=== PATIENT | female | born 1950 | race Caucasian/White ===

== ENCOUNTER 2017-08-21 06:43 | Day surgery (SDC) | payer OTHER, BC ==
[2017-08-16 12:03] VITALS: BMI 27.8
[2017-08-21] MEDS ORDERED: ceFAZolin SODIUM 1 GM VIAL ONE (07:23)
[2017-08-21] MEDS ORDERED: DEXAMETHASONE SOD PHOSPHATE 4 MG/1 ML VIAL ONE (07:23)
[2017-08-21] MEDS ORDERED: ONDANSETRON 4 MG/2 ML VIAL ONE (07:23)
[2017-08-21] MEDS ORDERED: PROPOFOL 20 ML ONE (07:23)
[2017-08-21] MEDS ORDERED: MIDAZOLAM HCL 2 MG/2 ML SINGLE DOSE VIAL ONE (07:24)
[2017-08-21] MEDS ORDERED: THROMBIN (BOVINE) 5,000 UNIT VIAL TP ONE (07:29)
[2017-08-21] MEDS ORDERED: BACITRACIN 3.5 GM OPTHALMIC OINT TUBE ONE (07:29)
[2017-08-21] MEDS ORDERED: OXYMETAZOLINE 0.05% NASAL SOLUTION 15 ML BOTTLE NS ONE (07:29)
[2017-08-21] MEDS ORDERED: LIDOCAINE 1%/EPI 1:100000 (20 ML MULTI DOSE VIAL) ONE (07:30)
[2017-08-21] MEDS ORDERED: POVIDONE-IODINE 5% OPHTHALMIC PREP 30 ML SOLUTION ONE (07:30)
[2017-08-21] MEDS ORDERED: BUPIVACAINE HCL/PF 0.5% (5MG/ML) 10 ML VIAL ONE (07:30)
[2017-08-21] MEDS ORDERED: TETRACAINE 0.5% OPHTH SOLN 2 ML BOTTLE ONE (07:30)
[2017-08-21] MEDS ORDERED: GELATIN, ABSORBABLE 100 EACH SPONGE TP ONE (07:45)
[2017-08-21] MEDS ORDERED: oxyCODONE HCL 5 MG TABLET PO PRN (07:47)
[2017-08-21] MEDS ORDERED: ONDANSETRON 4 MG/2 ML VIAL IVPUSH PRN (07:47)
[2017-08-21] MEDS ORDERED: MITOMYCIN 0.02% EYE DROPS - 2ML VIAL IO ONE (08:00)
[2017-08-21] MEDS ORDERED: LACTATED RINGERS SOLUTION 1,000 ML IV SCH (08:00)
[2017-08-21] MEDS ORDERED: ePHEDrine SULFATE 50 MG/1 ML AMPULE ONE (08:12)
[2017-08-21] MEDS ORDERED: BSS (NA/CA/MG/K) BALANCED SALT SOLUTION OPHTH SOLN 15 ML BOTTLE ONE (08:50)
--- NOTE | 2017-08-21 10:12 | OP ---
DATE OF OPERATION: 08/21/2017 PREOPERATIVE DIAGNOSIS: nasolacrimal obstruction, complete, right, with epiphora. POSTOPERATIVE DIAGNOSIS: nasolacrimal obstruction, complete, right, with epiphora. PROCEDURE: 1. External dacryocystorhinostomy, right. 2. Silicone intubation, right lacrimal system. 3. Internal common canaliculoplasty, right. 4. Partial ethmoidectomy, right. 5. Application of topical mitomycin, right. 6. Endoscopy. SURGEON: Lance Keller MD ANESTHESIA: General, LMA. COMPLICATONS: None. ESTIMATED BLOOD LOSS: 10 to 20 mL. OPERATIVE REPORT: Patient brought to the operating room and placed on the operating room table. Vital signs monitored by Anesthesia. She was placed under LMA. Timeout was performed. Line was marked in the right tear trough. A 50:50 mixture of 2% Xylocaine with 1:100,000 epinephrine and 0.5% Marcaine was injected in the tear trough, nasal 3rd of the of the upper and lower lids, lateral wall of the nose and under direct visualization the middle meatus, the middle turbinate, the septum and the right nostril were packed with cottonoids moistened with Afrin. The patient was prepped and draped in the usual sterile fashion, exposing both eyes. The left eye was taped closed with a Steri-Strip. Incision was then made in the tear trough and with blunt spreading this was carried down to the anterior lacrimal crest. The angular was traumatized and therefore needed to be cauterized. The anterior limb of the medial canthal tendon and the periosteum overlying the anterior lacrimal crest was then incised and reflected laterally, exposing the lacrimal sac fossa. The fossa was penetrated on its posterior aspect in the lacrimal bone and upbiting Kerrison rongeurs were used to create an osteotomy centered on the lacrimal sac fossa extending from the medial canthal tendon to the nasolacrimal duct and a partial ethmoidectomy was performed at this point, removing ethmoidal mucosa and air cells and this allowed passage through the nose. The nasal mucosa was opened and posterior nasal mucosa was removed. In the anterior nasal mucosa relaxing incisions were used to create an anterior nasal mucosal flap. Packing was removed. The upper and lower puncta were dilated. The upper punctum was probed with a Mauro probe and tented the medial wall of the sac medially which was incised with a 12 blade, creating anterior and posterior lacrimal sac flaps with relaxing incisions. The posterior lacrimal sac flap was biopsied several times for permanent and fresh set of tissue. The lower punctum was dilated and the probe would not pass into the sac, demonstrating as was suspected a stricture at the lower canalicular sac junction. Therefore, the probe was used to tent the lateral wall of the sac medially and then the scar was excised with a Manjinder scissor and the opening was dilated and any scar tissue around that area of the internal common canaliculus was removed and sent for biopsy and this completed the internal common canaliculoplasty. At this point the nose was packed with a cottonoid and a Weck-Alisa soaked in 0.2 mg/mL of mitomycin was applied to the internal common canaliculus and allowed to sit there for 3 minutes. After it was removed and washed with several changes of BSS to remove the mitomycin the anterior lacrimal sac flap was secured with a double-armed 4-0 chromic suture. The upper and lower puncta were intubated with Wells probes. These were passed through the newly created opening in the lateral wall of the lacrimal sac at the internal common canaliculus and these were retrieved with a Wells hook in the nose. The packing had been removed and this intubated the system. Stents were removed from the probes and tied with locking knots in the nose. The anterior lacrimal sac flap was secured to the anterior nasal mucosal flap with a mattress 4-0 chromic suture which was also secured to the periosteum anterior to the osteotomy site. The subcuticular tissues were closed after antibiotic irrigation with a 5-0 chromic. The skin was closed with a running and interrupted 6-0 plain suture in plastic technique and the stents were tied to the internal right external naris with a single 6-0 Prolene suture with minimal tension on the loop in the right medial canthus. Endoscope was then introduced demonstrating excellent clearance of the internal ostium just at the head of the middle turbinate with no impingement from the turbinate, good hemostasis and no evidence of septal impingement. Afrin was sprayed in the nose. Bacitracin ointment was placed on the sutures and the patient was taken to the recovery room after being awakened from anesthesia in stable condition. LANCE KELLER M.D. [id number] MTDD
[2017-08-21 10:27] VITALS: TEMP 97.6
[2017-08-21] MEDS ORDERED: ACETAMINOPHEN 325 MG TABLET (FP) ONE (10:46)
[2017-08-21] MEDS ORDERED: ACETAMINOPHEN 325 MG TABLET (FP) PO ONE (10:53)
[2017-08-21 11:21] VITALS: BP 132/74; PULSE 64
--- NOTE | 2017-08-24 16:29 | PATH ---
Surgical Pathology Report Patient Name: DEREK HANDY [facility]. Rec. #: [id number] /Age/Gender: 1950 (Age: 66) / F Account: [id number] Location: [facility] AMBULATORY Taken: 08/21/2017 Received: 08/21/2017 Reported: 08/24/2017 Physicians: Casa Phipps Specimen(s) Received A: LACRIMAL SAC RIGHT (PERM) B: LACRIMAL SAC RIGHT (FRESH) C: INTERNAL CANALICULI RIGHT Clinical History Block right tear duct Final Diagnosis A, . LACRIMAL SAC, RIGHT, EXCISION: LACRIMAL SAC TISSUE SHOWING MARKED FIBROSIS AND MILD CHRONIC INFLAMMATION. BONE WITH NO PATHOLOGIC FINDINGS. B. LACRIMAL SAC, RIGHT, EXCISION: FIBROVASCULAR TISSUE SHOWING MARKED FIBROSIS. C. INTERNAL CALCULI, RIGHT, REMOVAL: SCANT CALCIFIC MATERIAL, CONSISTENT WITH CALCULI. Electronically Signed Alida Estrada M.D. Gross Description A. Received in formalin labeled "lacrimal sac right," is a 0.8 x 0.5 x 0.2 cm aggregate of ragsdale bone and possible soft tissue fragments. The specimen is entirely submitted in one cassette, following decalcification. B. Received fresh labeled "lacrimal sac right," are 2 pink-ragsdale soft tissue fragments measuring 0.4 and 0.6 cm in greatest dimension. The specimen is placed in RPMI. Half of each specimen is submitted for permanent sections. The remainder of the specimen is left in RPMI solution in the refrigerator. Upon examination of the tissue submitted for permanent sections, the tissue in RPMI is also submitted for histologic evaluation (entire tissue submitted in two cassettes). C. Received in formalin labeled "internal canaliculi," is a 0.1 cm in greatest dimension brown soft tissue fragment. The specimen is submitted in toto in one cassette. DL/08/21/2017 saudi08/21/2017
== END 2017-08-21 11:22 | disposition home or self-care (01) ==
LOC: FASU 06:43
PROVIDERS: ATTEND Ophthalmology
PROC: 09BU0ZZ Excision of Right Ethmoid Sinus, Open Approach (ICD-10-PCS; 2017-08-21)
PROC: 0WJQ8ZZ Inspection of Respiratory Tract, Via Natural or Artificial Opening Endoscopic Approach (ICD-10-PCS; 2017-08-21)
PROC: 081X0Z3 Bypass Right Lacrimal Duct to Nasal Cavity, Open Approach (ICD-10-PCS; principal; 2017-08-21 08:19)
DX: H04.551 Acquired stenosis of right nasolacrimal duct (principal); H04.201 Unspecified epiphora, right side
CPT/HCPCS: 94760

== ENCOUNTER 2017-09-11 07:47 | Day surgery (SDC) | payer OTHER, BC ==
[2017-09-06 09:45] VITALS: BMI 27.8
[2017-09-11] MEDS ORDERED: MIDAZOLAM HCL 2 MG/2 ML SINGLE DOSE VIAL ONE (09:06)
[2017-09-11] MEDS ORDERED: PROPOFOL 20 ML ONE ×2 (09:06)
[2017-09-11] MEDS ORDERED: BACITRACIN 3.5 GM OPTHALMIC OINT TUBE ONE (09:24)
[2017-09-11] MEDS ORDERED: TETRACAINE 0.5% OPHTH SOLN 2 ML BOTTLE ONE (09:24)
[2017-09-11] MEDS ORDERED: THROMBIN (BOVINE) 5,000 UNIT VIAL TP ONE (09:24)
[2017-09-11] MEDS ORDERED: POVIDONE-IODINE 5% OPHTHALMIC PREP 30 ML SOLUTION ONE (09:24)
[2017-09-11] MEDS ORDERED: OXYMETAZOLINE 0.05% NASAL SOLUTION 15 ML BOTTLE NS ONE (09:24)
[2017-09-11] MEDS ORDERED: GELATIN, ABSORBABLE 100 EACH SPONGE TP ONE (09:25)
[2017-09-11] MEDS ORDERED: LIDOCAINE 1%/EPI 1:100000 (20 ML MULTI DOSE VIAL) ONE (09:25)
[2017-09-11] MEDS ORDERED: BUPIVACAINE HCL/PF 0.5% (5MG/ML) 10 ML VIAL ONE (09:25)
[2017-09-11] MEDS ORDERED: oxyCODONE HCL 5 MG TABLET PO PRN (09:28)
[2017-09-11] MEDS ORDERED: ONDANSETRON 4 MG/2 ML VIAL IVPUSH PRN (09:28)
[2017-09-11] MEDS ORDERED: LACTATED RINGERS SOLUTION 1,000 ML IV SCH (09:30)
[2017-09-11] MEDS ORDERED: ceFAZolin SODIUM 1 GM VIAL ONE (09:55)
[2017-09-11] MEDS ORDERED: LIDOCAINE HCL/PF 2% SDV 5ML VIAL ONE (09:55)
[2017-09-11] MEDS ORDERED: ONDANSETRON 4 MG/2 ML VIAL ONE (09:55)
[2017-09-11] MEDS ORDERED: DEXAMETHASONE SOD PHOSPHATE 4 MG/1 ML VIAL ONE (09:55)
[2017-09-11] MEDS ORDERED: PHENYLEPHRINE HCL 10 MG/1 ML SINGLE DOSE VIAL ONE (09:58)
[2017-09-11] MEDS ORDERED: MINERAL OIL/PETROLATUM,WHITE 3.5 GM TUBE ONE (10:48)
[2017-09-11] MEDS ORDERED: BSS (NA/CA/MG/K) BALANCED SALT SOLUTION OPHTH SOLN 15 ML BOTTLE ONE (10:51)
[2017-09-11] MEDS ORDERED: MITOMYCIN 0.02% EYE DROPS - 2ML VIAL IO ONE (12:45)
[2017-09-11 12:52] VITALS: TEMP 97.4
[2017-09-11 12:54] VITALS: BP 123/63; PULSE 66
--- NOTE | 2017-09-11 14:49 | OP ---
DATE OF OPERATION: 09/11/2017 PREOPERATIVE DIAGNOSIS: Epiphora with nasal-lacrimal obstruction left at the level of the sac and the canalicular junction. POSTOPERATIVE DIAGNOSIS: Epiphora with nasal-lacrimal obstruction left at the level of the sac and the canalicular junction. PROCEDURES: External dacryocystorhinostomy, left. Silicone intubation, left lacrimal system. Lacrimal sac biopsy, left. Common internal canaliculoplasty, left. Application of adjuvant mitomycin 0.2 mg per mL. Partial ethmoidectomy, left. Partial middle turbinectomy, left, and endoscopy. SURGEON: Lance Keller MD ANESTHESIA: General. COMPLICATIONS: None. ESTIMATED BLOOD LOSS: Maybe 30 to 50 mL. OPERATIVE REPORT: The patient was brought to the operating room and placed on the operating room table. She was placed under general anesthesia and intubated. The left side was marked and was confirmed. Timeout was performed. The line was marked in the tear trough on the left side from the medial canthal tendon down to the tear trough. After the timeout, a 50:50 mixture of 2% Xylocaine with 1:100,000 epinephrine and 0.5% Marcaine was injected in the tear trough, nasal third of the upper and lower lid, lateral wall in the nose, dorsal nasal artery, infraorbital artery for a total of 4 to 5 mL. This was all for hemostasis and the nose was packed with cottonoids moistened with Afrin. These were subsequently removed and the injection was carried out in the middle turbinate, middle meatus, external nares, and then the nose was repacked with the cottonoids moistened with Afrin. The patient was prepped and draped in the usual sterile fashion exposing both eyes. The right eye was taped closed with Steri-Strips. Incision was made in the tear trough on the left side and with gentle spreading of blunt dissection with a Guadalupe scissors on a Q-tip cotton-tipped applicator, the anterior lateral travis was obtained as was the anterior limb of the medial canthal tendon. Periosteum was incised with a Licking needle. Periosteum was then reflected laterally, along with the anterior limb of the medial canthal tendon, partially exposing the lacrimal fossa which was penetrated on its posterior half to free the lacrimal bone, and then up-biting Kerrison rongeurs were used to create an osteotomy extending from the nasolacrimal duct to the medial canthal tendon and including the anterior lacrimal crest. Ethmoidal air cells were encountered. These were partially extubated with Ron forceps and the nasal mucosa was incised and the posterior nasal mucosa was removed. The middle turbinate was partially encroaching on the ostium and there was a partial middle turbinectomy performed with Kerrisons as well. Cottonoids and Gelfoam soaked in thrombin were used to pack all of the bleeding areas with minimal cautery and this resulted in hemostasis. The upper and lower puncta were dilated and intubated with a probe. However, there as a restriction of passage from the canaliculus into the sac as was anticipated. The medial wall of the sac was tented medially as best as could be done and this was incised with a 12-blade and the Manjinder scissors. Posterior and inferior lacrimal sac flaps were created with relaxing incisions. The posterior lacrimal sac flap was biopsied and sent for biopsy. There were no masses. However, the area where the upper and lower canaliculi entered the sac was seen to be scarred and they did not pass freely into the sac as well as I had anticipated. Therefore, the scar had to be excised. This was submitted as the internal common canaliculoplasty specimen. The internal opening was widely dilated and then there was free passage of the probes into the sac. At this point, the nose was packed with cottonoids and a Weck-Alisa soaked in mitomycin 0.2 mg per mL was placed inside the sac where the internal common canaliculus scar had been removed. It was allowed to sit there for 3 minutes and then it was removed and irrigated out with three vials of BSS which was suctioned at the same time. The packing was then removed. The upper and lower puncta were intubated with probes which were retrieved with a hook through the left external naris. The anterior lacrimal sac flap was secured to the anterior nasal mucosal flap with mattress interrupted 4-0 chromic sutures. The subcuticular muscle was closed with 5-0 chromic and the skin was closed with a running 6-0 plain suture in plastic technique. The stents were removed from the probes tied with locking knots and the stents were tied with a locking knot in the left external naris and secured there with a single 6-0 Prolene through the nasal mucosa on the left external naris with minimal tension on the lip and left medial canthus. This completed the operation. The endoscope was then introduced, suction was introduced, and any remaining blood within the nasal cavity was suctioned, and good visibility of the internal ostium with one or two tags of nasal mucosa which had been previously removed during the middle of the case with Ron forceps from the nose which was not previously dictated were seen to be out of the way with no encroachment on the ostium, and Afrin was then sprayed into the nose. Several pictures were taken. Bacitracin was placed on the sutures and the patient was taken to the recovery room in stable condition, after being awakened from anesthesia. LANCE KELLER M.D. [id number]
--- NOTE | 2017-09-12 14:15 | PATH ---
Surgical Pathology Report Patient Name: DEREK HANDY [facility]. Rec. #: [id number] /Age/Gender: 1950 (Age: 66) / F Account: [id number] Location: [facility] AMBULATORY Taken: 09/11/2017 Received: 09/11/2017 Reported: 09/12/2017 Physicians: Casa Phipps Specimen(s) Received A: ETHMOID TISSUE B: LWFT LACRMIAL SAC C: LEFT INTERNAL CANALICULUS D: LEFT TURBINATE Clinical History Left blocked tear duct Final Diagnosis A. ETHMOID TISSUE, BIOPSY: RESPIRATORY MUCOSA WITH ADJACENT BONE, SEPARATE FRAGMENT OF SEROUS AND MINOR MUCINOUS GLANDS SHOWING FEW LYMPHOPLASMACYTIC INFILTRATE AND FIBROSIS. B. LEFT LACRIMAL SAC: HYPERVASCULAR FIBROCONNECTIVE TISSUE WITH FOCAL LYMPHOCYITC INFILTRATE. C. LEFT INTERNAL CANALICULUS: FIBROCONNECTIVE TISSUE WITH FOCAL LYMPHOCYTIC INFILTRATE AND FIBROSIS. D. LEFT TURBINATE: BONE, STRATIFIED COLUMNAR EPITHELIUM, ADJACENT SEROUS AND MINOR MUCINOUS GLANDS SHOWING MIXED LYMPHOPLASMACYTIC INFILTRATE AND FOCAL FIBROSIS. Electronically Signed Sundar Jeffries M.D. Gross Description A. Received in formalin, labeled "ethmoid" are two ragsdale, irregular portions of soft tissue measuring 0.3 cm. in greatest dimension. The specimens are submitted in toto in one cassette. B. Received in formalin, labeled "left lacrimal sac" is a ragsdale, irregular portion of soft tissue measuring 0.2 cm. in greatest dimension. The specimens are submitted in toto in one cassette. C. Received in formalin, labeled "left internal canaliculus" is a ragsdale, irregular portion of soft tissue measuring 0.1 to cm. in greatest dimension. The specimens are submitted in toto in one cassette. D. Received in formalin, labeled "left turbinate" are 2 ragsadle, irregular portion of soft tissue measuring 1 x 0.5 x 0.2 cm in aggregate. The specimens are submitted in toto in one cassette. __ KWNaida/09/11/2017 suladam/09/11/2017
== END 2017-09-11 13:15 | disposition home or self-care (01) ==
LOC: FASU 07:47
PROVIDERS: ATTEND Ophthalmology
PROC: 09BV0ZZ Excision of Left Ethmoid Sinus, Open Approach (ICD-10-PCS; 2017-09-11)
PROC: 081Y0Z3 Bypass Left Lacrimal Duct to Nasal Cavity, Open Approach (ICD-10-PCS; principal; 2017-09-11 10:19)
DX: H04.202 Unspecified epiphora, left side (principal); H04.552 Acquired stenosis of left nasolacrimal duct
CPT/HCPCS: 88304-TC; 94760

== ENCOUNTER 2023-01-22 13:18 | Emergency (ER) | payer OTHER, BC ==
[2023-01-22 14:04] VITALS: BP 156/80; PULSE 74; RESP 20; TEMP 97.7; BMI 27.4
[2023-01-22] MEDS ORDERED: ACETAMINOPHEN 500 MG TABLET (FP) PO ONE (14:18)
[2023-01-22] MEDS ORDERED: ACETAMINOPHEN 325 MG TABLET (FP) ONE (14:44)
[2023-01-22] MEDS ORDERED: DIPHTH,PERTUSS(ACELL),TET 0.5 ML DISP.SYRIN IM ONE ×2 (17:54→17:59)
== END 2023-01-22 18:30 | disposition home or self-care (01) ==
LOC: JER 13:18
PROC: 0HQGXZZ Repair Left Hand Skin, External Approach (ICD-10-PCS; principal; 2023-01-22)
PROC: 3E0234Z Introduction of Serum, Toxoid and Vaccine into Muscle, Percutaneous Approach (ICD-10-PCS; 2023-01-22)
DX: M25.512 Pain in left shoulder (principal); S42.295A Other nondisplaced fracture of upper end of left humerus, initial encounter for closed fracture; S61.012A Laceration without foreign body of left thumb without damage to nail, initial encounter; W01.198A Fall on same level from slipping, tripping and stumbling with subsequent striking against other object, initial encounter; Y93.01 Activity, walking, marching and hiking
CPT/HCPCS: 70450-TC; 72125-TC; 73030-TC-LT-FY; 73060-TC-LT-FY; 73070-TC-LT-FY; 90715; 99284-25